=== PATIENT | male | born 1975 | race Caucasian/White ===

== ENCOUNTER 2018-01-31 21:21 | Emergency (ER) | payer BC ==
[~2018-01-31] VITALS: Ht 180.3 cm; Wt 97.2 kg
[2018-01-31 21:32] VITALS: Ht 180.3 cm; Wt 97.2 kg
[2018-01-31 23:14] VITALS: BP 148/91
== END 2018-01-31 23:14 | disposition home or self-care (01) ==
LOC: ED 21:21
DX: F41.9 Anxiety disorder, unspecified (principal); R03.0 Elevated blood-pressure reading, without diagnosis of hypertension